=== PATIENT | female | born 1950 | race Caucasian/White ===

== ENCOUNTER → 2022-02-24 | Outpatient (CLI) | payer MEDICARE, SELFPAY ==
[2022-02-24 17:54] LABS: Hematocrit 43.7 % (37-47); Hemoglobin 13.9 g/dL (12.0-15.0); Mean Corp Hgb Conc 31.8 g/dL (32-36); Mean Corpuscular Volume 94.4 fL (81-99); Mean Platelet Vol. 11.4 fl (6.2-12.0); Platelet Count 242 K/mm3 (150-450); RBC Distribution Width CV 13.6 % (11.6-14.6); RBC Distribution Width SD 47.2 fl (35.1-43.9); Red Blood Count 4.63 M/mm3 (4.2-5.4); White Blood Count 5.8 K/mm3 (4.4-11.0)
[2022-02-24 18:05] LABS: CRP < 2.90 mg/L (0.0-3.0)
[2022-02-27 09:08] LABS: Endomysial Antibody IgA Negative (Negative)
[2022-02-27 13:45] LABS: Immunoglobulin A 229 mg/dL (87-352); t-Transglutaminase IgA <2 U/mL (0-3)
== END | disposition home or self-care (01) ==
PROVIDERS: PCP Family Medicine; Referring Provider Internal Medicine Gastroenterology; Visit Provider Internal Medicine Gastroenterology
DX: R19.7 Diarrhea, unspecified (principal)
CPT/HCPCS: 36415; 82784; 83516; 85027; 86140; 86255

== ENCOUNTER → 2022-09-14 | Outpatient (CLI) | payer MEDICARE, SELFPAY ==
--- NOTE | 2022-09-14 11:22 | RAD_ITS ---
STUDY: X-RAY - LEFT HAND, ATTENTION FOURTH FINGER REASON FOR EXAM: Female, 71 years old. Ganglion cyst left ring finger. TECHNIQUE: 3 view(s) of the finger were obtained. COMPARISON: None. FINDINGS: Osteopenia. Mild arthrosis of the MCP and IP joints. Focal soft tissue swelling adjacent to the distal phalanx of the fourth digit. RAD/Finger(s) Min 2 Views IMPRESSION: Osteopenia, osteoarthritic changes and focal soft tissue swelling. No aggressive features or acute abnormality. Electronically Signed: Hadley Reinoso, at 15:01 EST ,
== END | disposition home or self-care (01) ==
LOC: RAD 11:14
PROVIDERS: PCP Family Medicine; Referring Provider Nurse Practitioner Family; Visit Provider Nurse Practitioner Family
DX: M67.442 Ganglion, left hand (principal)
CPT/HCPCS: 73140

== ENCOUNTER 2022-11-09 22:49 | Emergency (ER) | payer MEDICARE, SELFPAY ==
[2022-11-09] VITALS (7 sets, daily range): BP systolic 71–105; BP diastolic 44–49; PULSE 65–75; RESP 15–25; TEMP 36.6; O2SAT 94–97; BMI 34.0
[2022-11-09] MEDS: 0.9% Normal Saline 1,000 ML 1000 ML IV (23:09)
[2022-11-09 23:16] LABS: Absolute Neutrophil Count 4.8 X10^3/uL (2.0-7.7); Basophil# 0.06 X10^3/uL; Basophil% 0.8 % (0-1); Eosinophil# 0.12 X10^3/uL; Eosinophils% 1.7 % (0-5); Hemoglobin 9.5 g/dL (12.0-15.0); Lymphocyte % 22.4 % (19-41); Mean Corp Hgb Conc 31.7 g/dL (32-36); Mean Corpuscular Hgb 30.5 pg (27.0-32.0); Mean Corpuscular Volume 96.5 fL (81-99); Mean Platelet Vol. 11.2 fl (6.2-12.0); Monocyte# 0.53 X10^3/uL; Monocyte% 7.4 % (0-10); NRBC Flagged by Analyzer 0 % (0-5); Neutrophil # 4.81 X10^3/uL (2.7-7.7); Neutrophil % 67.4 % (47-70); Platelet Count 246 K/mm3 (150-450); RBC Distribution Width CV 13.6 % (11.6-14.6); RBC Distribution Width SD 48.3 fl (35.1-43.9); Red Blood Count 3.11 M/mm3 (4.2-5.4); White Blood Count 7.1 K/mm3 (4.4-11.0)
--- NOTE | 2022-11-09 23:31 | EX.ED.DYSGE1 ---
HPI History of Present Illness Chief Complaint: Syncope Detail of Chief Complaint: Nausea and vomiting. Informant: patient and spouse/S.O. Onset/Context/Timing Onset: Today and Yesterday Context: Gradual Onset Timing: Continuous Current Severity: Mild Maximum Severity: Moderate Narrative Narrative: 71-year-old female history of prior cholecystectomy and gastritis. States that she occasionally gets episodes where she gets significant epigastric pain with nausea and vomiting. She has had a upper GI to diagnose gastritis. She denies any hematemesis or melena. Said this began last night. She has had significant nausea and vomiting. She says is pretty common for these episodes. Prior similar symptoms: Yes Recent Illness/Hospitalization: No PFSH PFS Medical History Acquired deformity of nail ADHD Anemia Chronic bronchitis Concussion Family history of breast cancer Gallstones Gastritis Gastrointestinal problem Heart murmur High blood pressure History of echocardiogram History of IBS History of irregular heartbeat IBS (irritable bowel syndrome) Kidney stones Low iron Mitral valve prolapse Non-smoker Pneumonia Vision problems Wears glasses Home Medications bupropion HCl 300 mg 24 hr tablet, extended release 300 mg PO QAM 09/14/22 [History Last Taken Unknown] cholecalciferol (vitamin D3) 10 mcg (400 unit) tablet 10 mcg PO .3 X Week 09/14/22 [History Last Taken Unknown] ferrous sulfate 325 mg (65 mg iron) tablet (Feosol) 325 mg PO .3 X a week 09/14/22 [History Last Taken Unknown] losartan 25 mg tablet 25 mg PO DAILY 09/14/22 [History Last Taken Unknown] methylphenidate HCl 20 mg tablet 20 mg PO BID 09/14/22 [History Last Taken Unknown] multivitamin (Daily Multi-Vitamin tablet) 1 tab PO DAILY 09/14/22 [History Last Taken Unknown] Allergy/AdvReac Type Severity Reaction Status Date / Time latex Allergy Mild Rash Verified 11/09/22 22:52 clindamycin [From Cleocin] AdvReac Rash Verified 11/09/22 22:52 Family History Mother Arthritis Breast cancer Grandfather Cancer Grandmother Diabetes Father CVA (cerebral vascular accident) Other Parkinson disease Surgical History History of cholecystectomy History of colonoscopy History of tonsillectomy [place] teeth extracted Social History Smoking Status: Never smoker alcohol intake: never substance use type: does not use ROS ROS ED ROS Narrative Epigastric abdominal pain. Nausea and vomiting. No fever. No melena or hematemesis. Review of Systems ROS Unobtainable: Denies due to encephalopathy Constitutional Constitutional ED: Reports chills; Denies fever(s) Eyes Eyes: Denies blurry vision ENT ENT ED: Denies ear pain Cardiovascular Cardiovascular: Denies chest pain Respiratory/Chest Respiratory/Chest: Denies cough Gastrointestinal Gastrointestinal: Reports abdominal pain, nausea and vomiting; Denies constipation, diarrhea or melena Genitourinary Genitourinary ED: Denies dysuria or hematuria Musculoskeletal Musculoskeletal: Denies arthralgias Integumentary Denies abscess Neurologic Neurologic: Denies headache(s) Psychiatric Psychiatric: Denies anxiety Endocrine Endocrinology: Denies cold intolerance Hematologic/Lymphatic Hematologic/Lymphatic: Reports none Allergic/Immunologic Allergic/Immunologic ED: Denies mouth swelling or tongue swelling EXAM Physical Exam Narrative Exam Narrative: 71-year-old female complaining epigastric abdominal pain. Initial blood pressure 75/47. Heart rate 65. She is afebrile. Pulse ox 97% on room air no hypoxia. at bedside. H EENT exam mildly dry mucous membranes. Otherwise unremarkable. Neck nontender. Lungs are clear. Heart regular rhythm rate about 65 no murmur. Abdomen is soft. She is complaining of pain but does not reproducibly tender. There is no right upper quadrant or right lower quadrant tenderness. No peritoneal signs. No distention or signs of obstruction. Moving all 4 extremities. Nontender no edema. Back nontender. Neurologically she is awake and alert. Const Vital Signs: 11/09/22 22:53 11/09/22 22:59 11/09/22 23:00 Temperature 97.9 F Temperature Source Oral Pulse Rate 65 65 Respiratory Rate 25 H 25 H Respiratory Effort Normal Respiratory Pattern Normal Blood Pressure 75/47 L 71/46 L Blood Pressure Mean 56 54 Blood Pressure Source Blood Pressure Position Blood Pressure Location Pulse Ox 97 96 Oxygen Delivery Method Room Air Room Air 11/09/22 23:35 11/09/22 23:18 11/09/22 23:28 Temperature Temperature Source Pulse Rate 73 68 70 Respiratory Rate 15 15 18 Respiratory Effort Respiratory Pattern Blood Pressure 103/44 L 105/49 L Blood Pressure Mean 63 66 Blood Pressure Source Blood Pressure Position Blood Pressure Location Pulse Ox 94 Oxygen Delivery Method Room Air 11/09/22 23:31 11/09/22 23:46 11/10/22 00:17 Temperature Temperature Source Pulse Rate 68 75 Respiratory Rate 15 16 Respiratory Effort Respiratory Pattern Blood Pressure 103/44 L 102/49 L 100/53 L Blood Pressure Mean 62 65 69 Blood Pressure Source Blood Pressure Position Blood Pressure Location Pulse Ox Oxygen Delivery Method 11/10/22 00:31 11/10/22 00:40 11/10/22 00:46 Temperature Temperature Source Pulse Rate 89 78 Respiratory Rate Respiratory Effort Respiratory Pattern Blood Pressure 127/60 H 140/70 H Blood Pressure Mean 75 90 Blood Pressure Source Blood Pressure Position Blood Pressure Location Pulse Ox Oxygen Delivery Method 11/10/22 01:01 11/10/22 01:31 11/10/22 01:35 Temperature 98.4 F 98.2 F Temperature Source Oral Oral Pulse Rate 84 84 78 Respiratory Rate 18 38 H 19 H Respiratory Effort Respiratory Pattern Blood Pressure 128/75 H 128/69 H 132/74 H Blood Pressure Mean 92 88 93 Blood Pressure Source Monitor Monitor Blood Pressure Position Semi-Fowlers Semi-Fowlers Blood Pressure Location Right Arm Right Arm Pulse Ox 96 96 98 Oxygen Delivery Method Room Air Room Air 11/10/22 01:50 11/10/22 02:50 Temperature 98.3 F 98 F Temperature Source Oral Oral Pulse Rate 82 95 Respiratory Rate 18 18 Respiratory Effort Respiratory Pattern Blood Pressure 138/76 H 141/96 H Blood Pressure Mean 96 111 Blood Pressure Source Monitor Monitor Blood Pressure Position Semi-Fowlers Semi-Fowlers Blood Pressure Location Right Arm Right Arm Pulse Ox 98 97 Oxygen Delivery Method Room Air Room Air Positive well nourished and well developed; Negative for cachectic, contractures or unkempt General Appearance ED: well developed; Negative for unkempt, cachectic, contractures, cyanotic, diaphoretic, NAD or pallor Nutritional Appearance: Negative for cachectic HEENT Reports dry mucous membranes; Denies moist mucous membranes Negative for trauma or tenderness Mouth ED: Yes dry mucous membranes Mouth: dry mucous membranes Eyes PERRL and EOMs intact bilaterally General Eye ED: Negative for pale conjunctiva or scleral icterus Neck no lymphadenopathy, supple and no JVD General: Negative for tenderness Lymph Lymphatic: Negative for other Chest Wall inspection of chest normal and palpation of chest normal Chest: Negative for other Resp clear to auscultation bilaterally Effort and Inspection: Negative for retractions Auscultation: Negative for rales, rhonchi or wheezes Cardio regular rate, regular rhythm, S1 normal heart sound, S2 normal heart sound and no murmurs Palpation: Negative for palpable S3 Rate: Negative for bradycardia Rhythm: Negative for abnormal rhythm GI normal to inspection, nondistended, normoactive bowel sounds, non-tender, non-distended and no masses Inspection: Negative for abdominal distention Auscultation: normoactive bowel sounds Palpation: soft; Negative for tender, guarding, splenomegaly, mass or rebound tenderness present Back/Spine no CVA tenderness General Back: Negative for CVA tenderness Cervical Spine: Negative for cervical spine tenderness Thoracic Spine / Upper Back: Negative for thoracic spinal tenderness Lumbar Spine / Lower Back: Negative for lumbar spinal tenderness Extremity normal to inspection General Extremety ED: Negative for edema, tenderness or other findings General Extremity: Negative for edema or other findings Neuro oriented x3 Sensorium / Orientation: alert; Negative for orientation impaired Sensory Exam: No sensory level loss detected Motor Exam: strength 5/5 throughout; Negative for general weakness Psych mental status grossly normal Appearance: Negative for unkempt Attitude: No agitated Mood & Affect: Negative for depressed, anxious or tearful Skin no rashes or lesions noted, no wounds and skin turgor normal General Skin Exam: Negative for elasticity normal, jaundice or pallor Lesions: No lesion noted Rashes: No rashes noted Trauma: Negative for abrasion Wounds: Negative for wounds noted MDM MDM MDM Narrative Medical decision making narrative: [id number] female with epigastric abdominal pain with a history of gastritis. Has nausea and vomiting. She will be treated with IV fluids for her hypotension of 75/47. She will be given Zofran for nausea. Fentanyl for pain. She also be given IV Protonix. I am concerned because her initial labs her hemoglobin is 9.5 and previously was 13.9 she is she is down 4+ units. She will also be typed and crossed. She will not be given blood at this time. But may needed if her pressure does not improve with IV fluid boluses. Patient's abdominal CAT scan per the radiologist was concerning for gastric volvulus which was basically inside her chest cavity. We gave her oral contrast shot to Long and is been no movement of the contrast into her intestines. Which would be also consistent with a gastric volvulus. I spoke to my general surgeon on-call since most of the pathology is in the patient's chest this will take most likely cardiothoracic surgery involvement and she felt it be best to be referred to an outside facility where they have those type of capabilities. We will try multiple hospitals for an accepting facility. Currently the patient is stable and doing well at 1:30 AM. Her abdomen is nontender and nondistended. She is current blood pressure is 132/74. She feels much improved. I spoke to the general surgeon on-call at [facility]. They will accept the patient in transfer. She requested we try to place an NG. Patient was transfused a unit of blood. Was placed and she had coffee ground material through the NG. History & Record Review Discussion w/independent historian: Patient and Family Lab Data Attestation: I reviewed the patient's lab results. Lab results narrative: CBC White count 7.1 H&H 9.5 and 30. Previously her hemoglobin was 13.9. Platelets of 246. Electrolytes show sodium 140. Gap is 6 BUN is 51 creatinine is 1.13 which could be from dehydration could also be from an upper GI bleed. Glucose 172. Liver enzymes unremarkable. Lipase is only 56. Patient has been typed and crossed for blood but has not needed any blood and responded well to IV fluid bolus. Labs: Laboratory Results - last 24 hr 11/09/22 11/09/22 11/09/22 23:09 23:09 23:36 WBC 7.1 RBC 3.11 L Hgb 9.5 L Hct 30.0 L MCV 96.5 MCH 30.5 MCHC 31.7 L RDW Std Deviation 48.3 H RDW Coeff of Tyrel 13.6 Plt Count 246 MPV 11.2 Immature Gran % (Auto) 0.300 Neut % (Auto) 67.4 Lymph % (Auto) 22.4 Young % (Auto) 7.4 Eos % (Auto) 1.7 Baso % (Auto) 0.8 Absolute Neuts (auto) 4.8 Absolute Lymphs (auto) 1.60 Nucleated RBC % 0 PT 16.1 H INR 1.3 APTT 30.0 Sodium 140 Potassium 4.6 Chloride 112 H Carbon Dioxide 22.0 Anion Gap 6 BUN 51 H Creatinine 1.13 H Estim Creat Clear Calc 40.57 Est GFR (MDRD) Af Amer 61 Est GFR (MDRD) Non-Af 51 L BUN/Creatinine Ratio 45.1 H Glucose 172 H Calcium 8.2 L Total Bilirubin 0.40 AST 16 ALT 21 Alkaline Phosphatase 54 Total Protein 5.4 L Albumin 2.4 L Globulin 3.0 Albumin/Globulin Ratio 0.8 L Lipase 56 L Blood Type Antibody Screen Crossmatch 11/09/22 23:36 WBC RBC Hgb Hct MCV MCH MCHC RDW Std Deviation RDW Coeff of Tyrel Plt Count MPV Immature Gran % (Auto) Neut % (Auto) Lymph % (Auto) Young % (Auto) Eos % (Auto) Baso % (Auto) Absolute Neuts (auto) Absolute Lymphs (auto) Nucleated RBC % PT INR APTT Sodium Potassium Chloride Carbon Dioxide Anion Gap BUN Creatinine Estim Creat Clear Calc Est GFR (MDRD) Af Amer Est GFR (MDRD) Non-Af BUN/Creatinine Ratio Glucose Calcium Total Bilirubin AST ALT Alkaline Phosphatase Total Protein Albumin Globulin Albumin/Globulin Ratio Lipase Blood Type O NEGATIVE Antibody Screen NEGATIVE Crossmatch See Detail Radiography Diagnostic Testing: Clinical Impression(s) from Imaging Studies Abdomen/Pelvis CT 11/10/22 00:00 IMPRESSION: There is a large hiatal hernia with mesenteric axial gastric volvulus. Nonobstructing stones in the right and left kidneys the largest measures 6 mm. Electronically Signed: Renuka Conley MD at 0:33 EDT , ADDENDUM: 11/10/22 0045 IMPRESSION: There is a large hiatal hernia with mesenteric axial gastric volvulus. Nonobstructing stones in the right and left kidneys the largest measures 6 mm. N.B. : The above Results were Read Back by Renuka Conley MD to Sandro Ruano MD, and understanding confirmed on 11/10/2022 00:38:23 (ET). Electronically Signed: Renuka Conley MD at 0:33 EDT , KUB X-Ray 11/10/22 00:42 IMPRESSION: Gastric obstruction due to gastric volvulus. Electronically Signed: Renuka Conley MD at 1:42 EDT Reading Location ID and State: [facility] / [place] Tel , Service support , KUB X-Ray 11/10/22 01:12 IMPRESSION: Persisting gastric obstruction . Electronically Signed: Renuka Conley MD at 1:54 EDT Reading Location ID and State: [facility] / [place] Tel , Service support , KUB was not done after the CAT scan due to concern for gastric obstruction. Contrast was given. A film was done 15 minutes later and and about 30 minutes later and there was no movement of the contrast outside the stomach again concerning for gastric volvulus or at least an outlet obstruction. Interpreted both by myself and the radiologist. Rhythm Strip Rhythm Strip: Sinus Rhythm Rate: 65 Ectopy: None EKG Initial EKG: Attestation: I personally reviewed and interpreted this EKG as follows: Interpretation: Sinus Rhythm and No Acute Injury Pattern Comments: Sinus rhythm rate of 65 no acute signs of CA or ischemia. Critical Care Time Critical Care Time: Yes Critical care time (excluding procedures): 30-74 minutes, Including time spent:, Discussing w/Patient &/or Family/Seat Nailer, Discussing w/Consultants, Arranging Admission or Transfer, Performing Direct Patient Care at Bedside and - (34 min) Discharge Plan Triage Chief Complaint: Syncope ED Provider: Brent Ruano Dx/Rx/DC Orders Clinical Impression: Acute gastric volvulus, Anemia, Acute upper GI bleed, Hx of cholecystectomy, Transient hypotension, Acute dehydration Prescriptions: No Action methylphenidate HCl 20 mg tablet 20 mg PO BID bupropion HCl 300 mg tablet extended release 24 hr 300 mg PO QAM losartan 25 mg tablet 25 mg PO DAILY ferrous sulfate [Feosol] 325 mg (65 mg iron) tablet 325 mg PO .3 X a week cholecalciferol (vitamin D3) 10 mcg (400 unit) tablet 10 mcg PO .3 X Week multivitamin [Daily Multi-Vitamin] Tablet 1 tab PO DAILY Primary Care Provider: Karli Bennett Referrals: Karli Bennett MD [Primary Care Provider] - Disposition Disposition: Acute Care Hospital
[2022-11-09 23:37] LABS: ALB/GLOB Ratio 0.8 RATIO (0.9-2.4); AST(SGOT) 16 U/L (15-37); Alanine Aminotransfer ALT/SGPT 21 U/L (13-56); Albumin, Serum 2.4 g/dL (3.2-5.0); Alkaline Phosphatase 54 U/L (45-117); Anion Gap 6 (5-15); BUN 51 mg/dL (7-18); BUN/Creat Ratio 45.1 RATIO (10-20); Calcium,Total 8.2 mg/dL (8.5-10.1); Chloride 112 mmol/L (98-107); Creatinine, Serum 1.13 mg/dL (0.55-1.02); EST Glomerular Filtration Rate 51 mL/min (>60); Est Glom Filt Rate - Afr Amer 61 mL/min (>60); Estimated Creatinine Clearance 40.57 ml/min; Glucose 172 mg/dL (74-106); Lipase 56 U/L (73-393); Potassium 4.6 mmol/L (3.5-5.1); Protein, Total 5.4 g/dL (6.4-8.2); Sodium Level 140 mmol/L (136-145)
[2022-11-10] VITALS (18 sets, daily range): BP systolic 100–171; BP diastolic 53–104; PULSE 73–118; RESP 14–38; TEMP 36.6–36.9; O2SAT 96–98
[2022-11-10] LABS: International Normalized Ratio 1.3; Prothrombin Time (Protime)PT. 16.1 SECONDS (11.7-14.9)
--- NOTE | 2022-11-10 | CT_ITS ---
We are attempting to reach an attending provider to discuss findings. An addendum with communication details will be sent when the communication is complete. INDICATION: epigastric abd pain. anemia new EXAMINATION: CT ABDOMEN AND PELVIS WITH CONTRAST - CT Abdomen And Pelvis W/ Contrast Injection TECHNIQUE: Helically acquired images were obtained of the abdomen and pelvis following IV contrast. A radiation dose optimization technique was used for this scan. IV Contrast dosage and agent: Oral contrast: None. Radiation Dose (If provided by facility): 17.05 1374.08 COMPARISON: None. FINDINGS: LOWER CHEST: Lung bases are clear. No cardiomegaly or pericardial effusion. LIVER: Homogeneous. No focal mass. No intra- or extrahepatic biliary ductal dilation. PANCREAS: No focal cystic or solid mass. SPLEEN: Normal size without focal cystic or solid mass. ADRENAL GLANDS: No nodules. KIDNEYS AND URETERS: Normal renal size and position. Nonobstructing stones in the right and left kidneys the largest measures 6 mm. No hydronephrosis. PERITONEUM: No ascites or free air. No other fluid collection. BOWEL: No evidence of acute appendicitis. No stomach or bowel distension. No focal inflammatory change. LYMPH NODES: No enlarged mesenteric or retroperitoneal lymph nodes. VESSELS: Aorta is non-dilated. URINARY BLADDER: Unremarkable. REPRODUCTIVE ORGANS: No pelvic masses. ABDOMINAL WALL: No discrete abdominal or pelvic wall hernia. BONES: No lytic or blastic abnormality. CT/Abdomen/Pelvis W IV Cont ONLY IMPRESSION: There is a large hiatal hernia with mesenteric axial gastric volvulus. Nonobstructing stones in the right and left kidneys the largest measures 6 mm. Electronically Signed: Renuka Conley MD at 0:33 EDT ,
[2022-11-10] MEDS: 0.9% Normal Saline 1,000 ML 999 ML IV (00:13)
--- NOTE | 2022-11-10 00:42 | RAD_ITS ---
INDICATION: 15 min post oral contrast EXAMINATION/TECHNIQUE: X-RAY - XR Abdomen 1 View FINDINGS: BOWEL GAS PATTERN: The stomach is intrathoracic. There is gastric distention with no contrast passing through the stomach consistent with obstruction most likely due to gastric volvulus . FREE AIR: Not assessed on a single supine view. ORGANOMEGALY: Not seen. CALCIFICATIONS: No abnormal calcifications observed. LOWER CHEST: No acute pathology. BONES AND SOFT TISSUES: No acute pathology. RAD/Abdomen Single View IMPRESSION: Gastric obstruction due to gastric volvulus. Electronically Signed: Renuka Conley MD at 1:42 EDT ,
--- NOTE | 2022-11-10 01:12 | RAD_ITS ---
INDICATION: volvulus EXAMINATION/TECHNIQUE: X-RAY - XR Abdomen 1 View COMPARISON: Comparison to the study performed 30 minutes earlier FINDINGS: BOWEL GAS PATTERN: The stomach is intrathoracic. There is gastric distention with no contrast passing through the stomach consistent with obstruction most likely due to gastric volvulus . FREE AIR: Not assessed on a single supine view. ORGANOMEGALY: Not seen. CALCIFICATIONS: No abnormal calcifications observed. LOWER CHEST: No acute pathology. BONES AND SOFT TISSUES: Contrast residue in the bilateral renal collecting systems. RAD/Abdomen Single View IMPRESSION: Persisting gastric obstruction . Electronically Signed: Renuka Conley MD at 1:54 EDT ,
--- NOTE | 2022-11-10 01:41 | ED.RN ---
[facility] called for transfer at this time
--- NOTE | 2022-11-10 02:18 | RAD_ITS ---
INDICATION: NG Insertion EXAMINATION/TECHNIQUE: X-RAY - XR Abdomen 1 View COMPARISON: FINDINGS: BOWEL GAS PATTERN: Persisting gastric obstruction. NG tube in the lower esophagus does not reach the gastric lumen. FREE AIR: Not assessed on a single supine view. ORGANOMEGALY: Not seen. CALCIFICATIONS: No abnormal calcifications observed. LOWER CHEST: No acute pathology. BONES AND SOFT TISSUES: No acute pathology. RAD/Abdomen Single View (Portable) IMPRESSION: Persisting gastric obstruction. NG tube in the lower esophagus does not reach the gastric lumen. Electronically Signed: Renuka Conley MD at 4:17 EDT ,
[2022-11-10] MEDS: Ondansetron 4 MG/2 ML Vial IV (02:47)
--- NOTE | 2022-11-10 03:11 | ED.RN ---
Pt not tolerating NG tube when trying to advance. Pt grabbing at RN and tube. Dr. Ruano notified, verbal order to d/c NG.
--- NOTE | 2022-11-10 03:45 | ED.RN ---
Report given to Favio GUPTA at [facility].
== END 2022-11-10 05:08 | disposition short-term general hospital (02) ==
PROVIDERS: Emergency Medicine; Emergency Provider Emergency Medicine; PCP Family Medicine; Visit Provider Emergency Medicine
DX: K31.89 Other diseases of stomach and duodenum (principal); K92.2 Gastrointestinal hemorrhage, unspecified; D64.9 Anemia, unspecified; R55 Syncope and collapse; E86.0 Dehydration; Z90.49 Acquired absence of other specified parts of digestive tract; I95.89 Other hypotension
CPT/HCPCS: 36430; 74018; 74177; 80053; 83690; 85025; 85610; 85730; 86850; 86900; 86901; 86920; 86922; 93005; 96361; 96374; 99285; J7030; J7040; P9016; Q9967; A4216; J2405; J3490

== ENCOUNTER 2023-11-18 07:42 | Inpatient (IN) | payer MEDICARE, SELFPAY ==
[2023-11-18] VITALS (8 sets, daily range): BP systolic 120–154; BP diastolic 73–99; PULSE 70–82; RESP 14–18; TEMP 36.1–36.4; O2SAT 96–100; BMI 29.5
--- NOTE | 2023-11-18 07:59 | CT_ITS ---
STUDY: CT ABDOMEN AND PELVIS WITH CONTRAST REASON FOR EXAM: Female, 73 years old. s/p hiatal hernia repair constipation RADIATION DOSAGE (If Supplied By Facility): CTDIvol = ( 13.79 ) mGy, DLP = ( 916.09 ) mGycm TECHNIQUE: Transaxial images were obtained from the dome of the diaphragm to the symphysis pubis without oral contrast. 100 CC ISOVUE 300 was administered. Sagittal and coronal images were reconstructed. Individualized dose optimization techniques were used for this CT. COMPARISON: None. FINDINGS: The visualized lung bases are unremarkable. The visualized portions of the heart are within normal limits. There is decreased attenuation of the liver consistent with steatosis. Stable 8 mm cyst in the medial aspect of the right lobe of the liver at the level of the falciform ligament. There are surgical clips in the gallbladder fossa consistent with a prior cholecystectomy. Normal spleen. Normal pancreas. Normal bilateral adrenal glands. There are 2 adjacent nonobstructive calculi in the lower pole calyx of the right kidney. The largest measures 6 mm. Nonobstructing calculus in the mid upper pole of the left kidney. There is evidence of circumferential thickening at the gastroesophageal junction most likely secondary to the recent hiatal hernia repair. Normal small intestine. A moderate amount of fecal material is seen in the colon. The appendix is visualized and appears normal. Normal abdominal aorta. Normal inferior vena cava. Normal retroperitoneum. Normal urinary bladder. There is a 2.6 cm x 2.5 cm cyst in the left ovary. This is unchanged. There is a right-sided inguinal hernia containing adipose tissue. Grade 2 anterior listhesis of L5 on S1 with spondylolysis of the pars interarticularis of the L5 vertebrae. CT/Abdomen/Pelvis W IV Cont ONLY IMPRESSION: Status post bilateral hernia repair. Fatty infiltration of the liver. Status post cholecystectomy. Stable nonobstructive bilateral intrarenal calculi. Stable left ovarian cyst. Electronically Signed: Andrea Duran MD at 9:05 EDT ,
--- NOTE | 2023-11-18 08:15 | EX.ED.DYSGE1 ---
HPI History of Present Illness Chief Complaint: Constipation Informant: patient and spouse/S.O. Narrative Narrative: 73-year-old female presenting to the emergency room with constipation times about 1 month. Patient underwent hiatal hernia surgery at [facility]. States she was in the hospital for about 5 days and was discharged home. When she returned home she found out her brother and shortly thereafter a close friend . She states that she had taken 1 Colace when she relates she was being constipated. She still having flatus. She has had small amounts of stool but still feels very bloated. She was told she could advance her diet on November 07 but due to nausea and worry she has not really advanced her diet much out of the liquid/soft phase. She has been taking Zofran for nausea. No reported fevers. No urinary symptoms. Other than feeling bloated and thick she has not had abdominal pain. She notes her incisions have been healing well. [facility] Medical History Acquired deformity of nail ADHD Anemia Chronic bronchitis Concussion Family history of breast cancer Gallstones Gastritis Gastrointestinal problem Heart murmur High blood pressure History of echocardiogram History of IBS History of irregular heartbeat IBS (irritable bowel syndrome) Kidney stones Low iron Mitral valve prolapse Non-smoker Pneumonia Vision problems Wears glasses Home Medications bupropion HCl 300 mg 24 hr tablet, extended release 300 mg PO QAM 09/14/22 [History Last Taken Unknown] cholecalciferol (vitamin D3) 10 mcg (400 unit) tablet 10 mcg PO .3 X Week 09/14/22 [History Last Taken Unknown] ferrous sulfate 325 mg (65 mg iron) tablet (Feosol) 325 mg PO .3 X a week 09/14/22 [History Last Taken Unknown] losartan 25 mg tablet 25 mg PO DAILY 09/14/22 [History Last Taken Unknown] multivitamin (Daily Multi-Vitamin tablet) 1 tab PO DAILY 09/14/22 [History Last Taken Unknown] methylphenidate HCl 20 mg tablet,extended release 20 mg PO BID 11/18/23 [History Last Taken Unknown] omeprazole 40 mg capsule,delayed release 40 mg PO DAILY 11/18/23 [History Last Taken Unknown] ondansetron HCl 4 mg tablet 4 mg PO PRN nausea 11/18/23 [History Last Taken Unknown] Allergy/AdvReac Type Severity Reaction Status Date / Time latex Allergy Mild Rash Verified 11/18/23 07:43 clindamycin [From Cleocin] AdvReac Rash Verified 11/18/23 07:43 Family History Mother Arthritis Breast cancer Grandfather Cancer Grandmother Diabetes Father CVA (cerebral vascular accident) Other Parkinson disease Surgical History History of cholecystectomy History of colonoscopy History of hernia repair History of tonsillectomy [place] teeth extracted Social History Smoking Status: Never smoker alcohol intake: never substance use type: does not use ROS ROS ED Constitutional Constitutional ED: Denies chills, fever(s) or weight loss Eyes Eyes: Denies change in vision or diplopia ENT ENT ED: Denies ear pain, rhinorrhea or sore throat Cardiovascular Cardiovascular: Denies chest pain, orthopnea, palpitations or racing heartbeat Respiratory/Chest Respiratory/Chest: Denies cough, dyspnea or orthopnea Gastrointestinal Gastrointestinal: Reports constipation and nausea; Denies abdominal pain, diarrhea or vomiting Genitourinary Genitourinary ED: Denies dysuria, hematuria or urinary frequency Musculoskeletal Musculoskeletal: Denies arthralgias or myalgias Integumentary Denies abscess or rash Neurologic Neurologic: Denies headache(s) or weakness Psychiatric Psychiatric: Denies anxiety, depression, suicidal ideation or suicidal thoughts Endocrine Endocrinology: Denies polydipsia, polyphagia or polyuria Allergic/Immunologic Allergic/Immunologic ED: Denies mouth swelling, tongue swelling or urticaria EXAM Physical Exam Const Vital Signs: 11/18/23 07:42 11/18/23 09:42 Temperature 97 F L Temperature Source Temporal Pulse Rate 80 82 Respiratory Rate 14 14 Blood Pressure 130/99 H 127/84 H Blood Pressure Mean 109 98 Pulse Ox 100 100 Oxygen Delivery Method Room Air Room Air Positive well nourished and well developed General Appearance ED: well developed HEENT Reports normocephalic, head/scalp atraumatic and moist mucous membranes Eyes PERRL and EOMs intact bilaterally Neck no lymphadenopathy, supple and no JVD Resp normal respiratory effort and clear to auscultation bilaterally Cardio regular rate, regular rhythm and no murmurs GI normal to inspection, nondistended, normoactive bowel sounds and non-tender GI Narrative: There are well-healing surgical incisions on the abdomen. No concern for secondary infection. The abdomen is soft. There are normal bowel sounds. Inspection: Negative for abdominal distention Auscultation: normoactive bowel sounds Palpation: soft; Negative for tender, guarding or rebound tenderness present Back/Spine no CVA tenderness and normal ROM Extremity normal to inspection General Extremety ED: Negative for edema General Extremity: Negative for edema Neuro oriented x3 and CN's II-XII intact bilaterally Sensorium / Orientation: alert Motor Exam: strength 5/5 throughout Psych mental status grossly normal Mood & Affect: Negative for depressed or tearful Skin no rashes or lesions noted and no wounds MDM MDM MDM Narrative Medical decision making narrative: Differential diagnosis includes but not limited to dehydration constipation ileus small bowel obstruction surgical complications. White count 5.7 with a hemoglobin 11.1 with a count of 256 creatinine now 3.68 with a BUN of 35. Glucose of 126 LFTs are normal urinalysis 25-50 white cells 1+ bacteria. This was sent for culture. Patient does not have any urinary symptoms. Urine creatinine 38.7 with a random sodium of 31. CT of the pelvis was obtained. This demonstrates increased stool consistent with her history of constipation but no obstruction ileus or inflammatory changes. Janina at 2.2% suggestive of intrinsic renal disease. I was able to obtain using clinda sink that her last creatinine 1.21 on 20 October 2023. History & Record Review Discussion w/independent historian: Patient and Significant other Lab Data Attestation: I reviewed the patient's lab results. Labs: Laboratory Results - last 24 hr 11/18/23 11/18/23 08:15 09:45 WBC 5.7 RBC 3.99 L Hgb 11.1 L Hct 35.1 L MCV 88.0 MCH 27.8 MCHC 31.6 L RDW Std Deviation 51.4 H RDW Coeff of Tyrel 15.8 H Plt Count 256 MPV 11.0 Immature Gran % (Auto) 0.400 Neut % (Auto) 72.3 H Lymph % (Auto) 14.0 L [place] % (Auto) 8.2 Eos % (Auto) 4.2 Baso % (Auto) 0.9 Absolute Neuts (auto) 4.1 Absolute Lymphs (auto) 0.80 L Nucleated RBC % 0 Sodium 137 Potassium 3.7 Chloride 110 H Carbon Dioxide 21.0 Anion Gap 6 BUN 35 H Creatinine 3.68 H Estim Creat Clear Calc 14.29 Est GFR (MDRD) Af Amer 16 L Est GFR (MDRD) Non-Af 13 L BUN/Creatinine Ratio 9.5 L Glucose 126 H Calcium 9.8 Total Bilirubin 0.50 AST 11 L ALT 17 Alkaline Phosphatase 86 Total Protein 8.4 H Albumin 3.3 Globulin 5.1 H Albumin/Globulin Ratio 0.6 L Urine Color Yellow Urine Clarity Sl. Cloudy Urine pH 6.5 Ur Specific [place] 1.005 Urine Protein 15 H Urine Glucose (UA) Normal Urine Ketones Negative Urine Occult Blood 10 H Urine Nitrite Negative Urine Bilirubin Negative Urine Urobilinogen Normal Ur Leukocyte Esterase 500 H Urine RBC 0-5 SEEN Urine WBC 25-50 SEEN Ur Squamous Epith Cells 0-5 SEEN Urine Bacteria 1+ Urine Mucus 0 SEEN Ur Random Sodium 31 Urine Creatinine 38.70 Radiography Diagnostic Testing: Clinical Impression(s) from Imaging Studies Abdomen/Pelvis CT 11/18/23 07:59 IMPRESSION: Status post bilateral hernia repair. Fatty infiltration of the liver. Status post cholecystectomy. Stable nonobstructive bilateral intrarenal calculi. Stable left ovarian cyst. Electronically Signed: Andrea Duran MD at 9:05 EDT , Discharge Plan Triage Chief Complaint: Constipation ED Provider: Bret Reyes Dx/Rx/DC Orders Prescriptions: No Action bupropion HCl 300 mg tablet extended release 24 hr 300 mg PO QAM losartan 25 mg tablet 25 mg PO DAILY ferrous sulfate [Feosol] 325 mg (65 mg iron) tablet 325 mg PO .3 X a week cholecalciferol (vitamin D3) 10 mcg (400 unit) tablet 10 mcg PO .3 X Week multivitamin [Daily Multi-Vitamin] Tablet 1 tab PO DAILY ondansetron HCl 4 mg tablet 4 mg PO PRN omeprazole 40 mg capsule,delayed release(DR/EC) 40 mg PO DAILY methylphenidate HCl 20 mg tablet extended release 20 mg PO BID Primary Care Provider: Karli Bennett Referrals: Karli Bennett MD [Primary Care Provider] -
[2023-11-18 08:29] LABS: Absolute Neutrophil Count 4.1 X10^3/uL (2.0-7.7); Basophil# 0.05 X10^3/uL; Basophil% 0.9 % (0-1); Eosinophil# 0.24 X10^3/uL; Eosinophils% 4.2 % (0-5); Hematocrit 35.1 % (37-47); Hemoglobin 11.1 g/dL (12.0-15.0); Mean Corp Hgb Conc 31.6 g/dL (32-36); Mean Corpuscular Hgb 27.8 pg (27.0-32.0); Monocyte# 0.47 X10^3/uL; Monocyte% 8.2 % (0-10); NRBC Flagged by Analyzer 0 % (0-5); Neutrophil # 4.12 X10^3/uL (2.7-7.7); Neutrophil % 72.3 % (47-70); Platelet Count 256 K/mm3 (150-450); RBC Distribution Width CV 15.8 % (11.6-14.6); RBC Distribution Width SD 51.4 fl (35.1-43.9); Red Blood Count 3.99 M/mm3 (4.2-5.4); White Blood Count 5.7 K/mm3 (4.4-11.0)
[2023-11-18 08:44] LABS: ALB/GLOB Ratio 0.6 RATIO (0.9-2.4); AST(SGOT) 11 U/L (15-37); Alanine Aminotransfer ALT/SGPT 17 U/L (13-56); Albumin, Serum 3.3 g/dL (3.2-5.0); Alkaline Phosphatase 86 U/L (45-117); Anion Gap 6 (5-15); BUN 35 mg/dL (7-18); BUN/Creat Ratio 9.5 RATIO (10-20); Calcium,Total 9.8 mg/dL (8.5-10.1); Chloride 110 mmol/L (98-107); Creatinine, Serum 3.68 mg/dL (0.55-1.02); EST Glomerular Filtration Rate 13 mL/min (>60); Est Glom Filt Rate - Afr Amer 16 mL/min (>60); Estimated Creatinine Clearance 14.29 ml/min; Globulin 5.1 g/dL (2.2-4.2); Glucose 126 mg/dL (74-106); Potassium 3.7 mmol/L (3.5-5.1); Protein, Total 8.4 g/dL (6.4-8.2); Sodium Level 137 mmol/L (136-145)
[2023-11-18] MEDS: 0.9% Normal Saline (1000mL) 1,000 ML 999 ML IV (09:00)
[2023-11-18 10:36] LABS: Urine Sodium 31 mmol/L (Not Establ.)
[2023-11-18 10:53] LABS: Mucous, Urine 0 SEEN /hpf (<or=2+)
[2023-11-18 11:02] LABS: Color, Urine Yellow (Yellow); Glucose, Dipstick Normal (Normal); Ketone-Dipstick Negative (Negative); Leukocyte Esterase-Dipstick 500 /ul (Negative); Nitrite-Dipstick Negative (Negative); Occult Blood-Urine 10 /ul (Negative); Protein-Dipstick 15 mg/dl (Negative); Specific Gravity, Urine 1.005 (1.002-1.030); Urine Bilirubin Dipstick Negative (Negative); Urine Clarity Sl. Cloudy (Clear); Urine Urobilinogen Normal (Normal); Urine pH 6.5 (5.0 - 8.0)
[2023-11-18 11:12] LABS: Bacteria 1+ /hpf (None Seen); Red Blood Cells-Urine 0-5 SEEN /hpf (0-5); Squamous Epithelial Cells - UA 0-5 SEEN /hpf (5-10); White Blood Cells 25-50 SEEN /hpf (0-5)
--- NOTE | 2023-11-18 12:43 | US_ITS ---
STUDY: RENAL ULTRASOUND - COMPLETE REASON FOR EXAM: Female, 73 years old. Acute kidney injury. TECHNIQUE: Ultrasound evaluation of the kidneys was performed with real-time and static riley-scale imaging. COMPARISON: Comparison is made with prior CT scan abdomen pelvis done earlier today. FINDINGS: RIGHT KIDNEY: Normal location of the right kidney, which is normal in size. The right kidney measures 9.1 cm x 5.2 cm x 6.6 cm. There is a normal cortex of the right kidney. The renal cortex measures 1.3 cm. There is no right renal mass or cyst. There is a 9 mm x 9 mm a 6 mm nonobstructive intrarenal calculus. A smaller calculus is seen as well. There is no right hydronephrosis. DISTAL RIGHT URETER: There is non-visualization of the distal right ureter. There is no demonstrated right ureterovesical junction calculus. There is no demonstrated right ureteral jet. LEFT KIDNEY: Normal location of the left kidney, which is normal in size. The left kidney measures 10.5 cm x 5.1 cm x 4.2 cm. There is a normal cortex of the left kidney. The renal cortex measures 1.3 cm. There is no left renal mass or cyst. There is a 9 mm x 4 mm x 5 mm nonobstructive calculus in the midpole. There is no left hydronephrosis. DISTAL LEFT URETER: There is non-visualization of the distal left ureter. There is no demonstrated left ureterovesical junction calculus. There is no demonstrated left ureteral jet. BLADDER: A Zhang catheter is seen within the empty urinary bladder. US/Kidney and Bladder IMPRESSION: Bilateral nonobstructive intrarenal calculi. No evidence of hydronephrosis. Electronically Signed: Andrea Duran MD at 15:09 EDT ,
--- NOTE | 2023-11-18 12:44 | PCM.HP.STD ---
HPI - General General Date of Admission: 11/18/23 Chief Complaint: Constipation HPI Narrative REILLY ZHOU, is a 73 F who presented to the emergency department at [facility] on 11/18/2023 complaining of constipation. She reports that she had a Kaushik fundoplication done at [facility] [place] on October 21, 2023 and was discharged from [facility] [place] on October 25, 2023. She was discharged with as needed medication for constipation but had not been taking it consistently. She states that her brother unexpectedly shortly after she was discharged and then shortly after that a close friend had so she had not been thinking about herself. She did report she was having flatus but she was having intermittent nausea and vomiting at home as well. She has had very small amounts of stool output but indicated she felt very bloated. She was told she could advance her diet on November 07 but due to nausea and was still predominantly taking in a liquid/soft diet. She had been taking intermittent Zofran for nausea. She denied any significant abdominal pain, fevers, chills, chest pain or shortness of breath. She states she would not of presented to emergency department if she is not having any abdominal symptoms. Vital signs on presentation showed a temperature of 97, heart rate 80, blood pressure was 130/99, respiratory was 14 oxygen saturation was 100% on room air. Her CBC was unremarkable other than a mild anemia with a hemoglobin of 11.1 which is to be expected postoperatively. Her chemistry panel showed normal electrolytes however her BUN was 35 with a serum creatinine of 3.68. The ER physician was able to look up a recent serum creatinine from [facility] [place] and it appears her baseline creatinine was about 1.2 on October 20, 2023. He did calculate a FeNa which was 2.2% and is suggestive of intrinsic renal disease. The patient denied any new medications at home other than the antiemetic and the Colace for constipation which she had not been taking consistently. She states she is not been on antibiotics but I do suspect she had antibiotics while she was hospitalized in the perioperative period. CT of her abdomen pelvis showed status post bilateral hernia repair, fatty infiltration of liver, status postcholecystectomy with a stable nonobstructive bilateral intrarenal calculi and a stable left ovarian cyst she also had a moderate amount of stool in her colon. With her renal function being significantly elevated from her baseline request for admission was made. [facility] Medical History (Updated 11/18/23 @ 15:[address] Janet Bal DO) Acquired deformity of nail ADHD Anemia Chronic bronchitis Concussion Family history of breast cancer Gallstones Gastritis Gastrointestinal problem Heart murmur High blood pressure History of echocardiogram History of IBS History of irregular heartbeat IBS (irritable bowel syndrome) Kidney stones Low iron Mitral valve prolapse Non-smoker Pneumonia Vision problems Wears glasses Home Medications bupropion HCl 300 mg 24 hr tablet, extended release 300 mg PO QAM 09/14/22 [History Last Taken 11/18/23] cholecalciferol (vitamin D3) 10 mcg (400 unit) tablet 10 mcg PO .3 X Week 09/14/22 [History Last Taken Unknown] ferrous sulfate 325 mg (65 mg iron) tablet (Feosol) 325 mg PO .3 X a week 09/14/22 [History Last Taken 11/17/23] losartan 25 mg tablet 25 mg PO DAILY 09/14/22 [History Last Taken 11/17/23] multivitamin (Daily Multi-Vitamin tablet) 1 tab PO DAILY 09/14/22 [History Last Taken 11/17/23] methylphenidate HCl 20 mg tablet,extended release 20 mg PO DAILY 11/18/23 [History Last Taken 11/17/23] omeprazole 40 mg capsule,delayed release 40 mg PO DAILY 11/18/23 [History Last Taken 11/18/23] ondansetron HCl 4 mg tablet 4 mg PO PRN nausea 11/18/23 [History Last Taken Unknown] Allergy/AdvReac Type Severity Reaction Status Date / Time latex Allergy Mild Rash Verified 11/18/23 07:43 clindamycin [From Cleocin] AdvReac Rash Verified 11/18/23 07:43 Family History Mother Arthritis Breast cancer Grandfather Cancer Grandmother Diabetes Father CVA (cerebral vascular accident) Other Parkinson disease Surgical History (Updated 11/18/23 @ 15:[address] Janet Bal DO) History of cholecystectomy History of colonoscopy History of hernia repair History of Kaushik fundoplication History of tonsillectomy [place] teeth extracted Social History Smoking Status: Never smoker alcohol intake: never substance use type: does not use ROS Constitutional Constitutional: Denies anorexia, change in weight, chills, fatigue, fever(s), malaise, night sweats, weakness or other Eyes Eyes: Denies blurry vision, change in eye color, change in vision, discharge from eye(s), double vision, erythema, eye pain, loss of vision or other ENT HEENT: Denies abnormal hearing, dysphagia, ear pain, epistaxis, headache(s), hearing loss, nasal congestion, nasal discharge, post nasal drip, sinus pressure, sore throat or other Cardiovascular Cardiovascular: Denies chest pain, claudication, dyspnea on exertion, edema, lightheadedness, orthopnea, palpitations, paroxysmal nocturnal dyspnea, rapid heart rate, syncope or other Respiratory/Chest Respiratory/Chest: Denies cough, dyspnea, excessive phlegm production, hemoptysis, productive cough, shortness of breath at rest, shortness of breath with exertion, wheezing or other Gastrointestinal Gastrointestinal: Reports constipation, nausea and vomiting; Denies abdominal pain, coffee ground emesis, diarrhea, dyspepsia, hematemesis, hematochezia, loose stools, melena or other Genitourinary Genitourinary: Denies burning urination, difficulty urinating, dysuria, hematuria, nocturia, urinary frequency, urinary hesitancy, urinary incontinence, urinary urgency or other Musculoskeletal Musculoskeletal: Denies arthralgias, back pain, joint pain, joint stiffness, joint swelling, myalgias, neck pain or other Neurologic Neurologic: Denies abnormal gait, abnormal speech, confusion, disequilibrium, dizziness, focal weakness, headache(s), numbness, paresthesias, seizure-like activity, seizures, syncope, tingling, tremor(s) or other Psychiatric Psychiatric: Reports depression; Denies anxiety, homicidal ideation, suicidal ideation or other Endocrine Endocrinology: Denies change in body appearance, cold intolerance, excessive sweating, heat intolerance, polydipsia, polyuria or other Hematologic/Lymphatic Hematologic/Lymphatic: Denies anemia, easy bleeding, easy bruising, lymphadenopathy or other Allergic/Immunologic Allergic/Immunologic: Denies rhinitis, hives, eczemia, asthma or other Vital Signs Vital Signs Vital Signs: 11/18/23 07:42 11/18/23 09:42 11/18/23 12:11 Temperature 97 F L Temperature Source Temporal Pulse Rate 80 82 70 Respiratory Rate 14 14 18 Blood Pressure 130/99 H 127/84 H 136/73 H Blood Pressure Mean 109 98 94 Pulse Ox 100 100 100 Oxygen Delivery Method Room Air Room Air Room Air Weight Weight: 79.379 kg Body Mass Index (BMI) 30.0 Physical Exam Const alert, oriented x3 and no apparent distress Constitutional Narrative: Overweight, older, white female, sitting up in bed, appears as if she is not feeling well but not toxic, currently feels comfortable, nursing at bedside General Appearance: cooperative HEENT normocephalic, head/scalp atraumatic, hearing grossly normal bilaterally and moist oral mucous membranes HEENT Narrative: Mallampati 3, no thrush, dentition is good Eyes PERRL, EOMs intact bilaterally and conjunctivae normal Eyes Narrative: No scleral icterus Neck no lymphadenopathy, supple, no JVD and no carotid bruits Neck Narrative: Trachea midline, no thyroid enlargement Resp normal respiratory effort, no retractions, no use of accessory muscles and clear to auscultation bilaterally Auscultation: Negative for rales, rhonchi or wheezes Cardio regular rate, regular rhythm, S1 normal heart sound, S2 normal heart sound, no rub, no gallops and no clicks; Negative for no murmurs Cardio Narrative: 2 out of 6 systolic murmur loudest at right upper sternal border GI normal to inspection, nondistended, normoactive bowel sounds, soft to palpation and non-tender Extremity no clubbing, cyanosis or edema Extremity Narrative: Pedal pulses are 2+ Skin no rashes or lesions noted, skin turgor normal, no jaundice, no petechiae and no mottling Skin Narrative: Postoperative incisions on abdomen and drain site are healing well with no signs of infection Neuro oriented x3, CN's II-XII intact bilaterally, moves all extremities and no focal motor deficits Speech: speech normal Psych affect normal Psych Narrative: Very pleasant, interacts appropriately Results Lab / Micro Data 11/18/23 08:15 11/18/23 08:15 Labs: Laboratory Results - last 24 hr 11/18/23 08:15: WBC 5.7, RBC 3.99 L, Hgb 11.1 L, Hct 35.1 L, MCV 88.0, MCH 27.8, MCHC 31.6 L, RDW Std Deviation 51.4 H, RDW Coeff of Tyrel 15.8 H, Plt Count 256, MPV 11.0, Immature Gran % (Auto) 0.400, Neut % (Auto) 72.3 H, Lymph % (Auto) 14.0 L, [place] % (Auto) 8.2, Eos % (Auto) 4.2, Baso % (Auto) 0.9, Absolute Neuts (auto) 4.1, Absolute Lymphs (auto) 0.80 L, Nucleated RBC % 0, Sodium 137, Potassium 3.7, Chloride 110 H, Carbon Dioxide 21.0, Anion Gap 6, BUN 35 H, Creatinine 3.68 H, Estim Creat Clear Calc 14.29, Est GFR (MDRD) Af Amer 16 L, Est GFR (MDRD) Non-Af 13 L, BUN/Creatinine Ratio 9.5 L, Glucose 126 H, Calcium 9.8, Total Bilirubin 0.50, AST 11 L, ALT 17, Alkaline Phosphatase 86, Total Protein 8.4 H, Albumin 3.3, Globulin 5.1 H, Albumin/Globulin Ratio 0.6 L 11/18/23 09:45: Urine Color Yellow, Urine Clarity Sl. Cloudy, Urine pH 6.5, Ur Specific [place] 1.005, Urine Protein 15 H, Urine Glucose (UA) Normal, Urine Ketones Negative, Urine Occult Blood 10 H, Urine Nitrite Negative, Urine Bilirubin Negative, Urine Urobilinogen Normal, Ur Leukocyte Esterase 500 H, Urine RBC 0-5 SEEN, Urine WBC 25-50 SEEN, Ur Squamous Epith Cells 0-5 SEEN, Urine Bacteria 1+, Urine Mucus 0 SEEN, Ur Random Sodium 31, Urine Creatinine 38.70 Imaging Radiology Impression Abdomen/Pelvis CT 11/18/23 07:59 IMPRESSION: Status post bilateral hernia repair. Fatty infiltration of the liver. Status post cholecystectomy. Stable nonobstructive bilateral intrarenal calculi. Stable left ovarian cyst. Electronically Signed: Andrea Duran MD at 9:05 EDT , Assessment & Plan Assessment/Plan (1) Acute constipation: (2) Acute kidney injury: (3) Abnormal urinalysis: PLAN: Plan YANA -Baseline creatinine on October 19 was 1.2 -Serum creatinine on admission was 3.68 -She does not appear to be dehydrated as the specific gravity on her UA was 1.005 -FeNa was calculated and is 2.2% indicative of intrinsic renal failure -Urine output has been normal -CT of the abdomen pelvis showed no abnormalities in the kidneys to suggest obstruction and the bladder was decompressed -Will check renal ultrasound -Check C3/C4/CH 50 -Will gently hydrate for now to see if this makes a difference but I am not convinced that this is going to change anything -Hold home losartan -Consult nephrology Acute constipation -Likely related to her recent Kaushik fundoplication -Schedule MiraLAX twice daily -Check TSH -Was given magnesium citrate in the emergency department Nausea and vomiting -Etiology is unclear -This has been going on and off since surgery and may be expected with her recent Kaushik fundoplication -She was given antiemetics at discharge after her procedure -Will continue to monitor and have her follow-up with her surgeon after discharge -Start Protonix 40 mg daily Abnormal urinalysis -Suggestive of UA -For now with YANA we will go ahead and treat with ceftriaxone for now and obtain a culture prior to antibiotics even though she is asymptomatic Chronic anemia -Hemoglobin appears to be stable -Will continue to monitor -Continue home iron supplementation Hypertension -Hold home losartan with renal dysfunction -As needed hydralazine available for systolic pressure greater than 160 Vitamin D deficiency -Restart cholecalciferol discharge History of GERD/hiatal hernia -Postop Kaushik fundoplication -Continue home PPI ADHD -Restart home methylphenidate at discharge Depression -Continue home bupropion DVT prophylaxis -Heparin 3 times daily with renal dysfunction CODE STATUS Full code Charges/Coding Visit Charges Inpatient E&M: 43296 Init Hosp L3
[2023-11-18] MEDS: Magnesium Citrate 300 ML PO (13:02)
[2023-11-18 13:15] LABS: Thyroid Stim Hormone (TSH) 3.97 uIU/mL (0.358-3.74)
[2023-11-18] MEDS: 0.9% Normal Saline (1000mL) 1,000 ML 100 ML IV (13:44)
[2023-11-18] MEDS: Ceftriaxone 1 GM/50 ML BAG IV (14:01)
[2023-11-18] MEDS: Ensure Plus High Protein 120 ML LIQUID PO (14:01)
[2023-11-18] MEDS: Ondansetron 4 MG/2 ML Vial IV (14:01)
[2023-11-18] MEDS: Heparin Injection (Vial) 5,000 UNIT/ML VIAL 5000 UNIT SC ×2 (14:03→19:42)
[2023-11-18] MEDS: Pantoprazole Sodium 40 MG Tablet PO (15:44)
[2023-11-18] MEDS: Polyethylene Glycol 3350 17 GM PACKET PO (19:41)
[2023-11-19] MEDS: 0.9% Normal Saline (1000mL) 1,000 ML 100 ML IV (01:13)
[2023-11-19 04:04] VITALS: BP 143/67; PULSE 76; RESP 16; TEMP 36.6; O2SAT 100
[2023-11-19 04:59] LABS: Absolute Lymphocyte Count 1.08 X10^3/uL (0.83-4.51); Absolute Neutrophil Count 5.2 X10^3/uL (2.0-7.7); Basophil# 0.06 X10^3/uL; Basophil% 0.8 % (0-1); Eosinophil# 0.29 X10^3/uL; Hematocrit 30.6 % (37-47); Hemoglobin 9.7 g/dL (12.0-15.0); Lymphocyte # 1.08 X10^3/ul (0.83-4.51); Mean Corp Hgb Conc 31.7 g/dL (32-36); Mean Corpuscular Hgb 27.8 pg (27.0-32.0); Mean Corpuscular Volume 87.7 fL (81-99); Mean Platelet Vol. 11.6 fl (6.2-12.0); Monocyte# 0.55 X10^3/uL; Monocyte% 7.6 % (0-10); NRBC Flagged by Analyzer 0 % (0-5); Neutrophil # 5.19 X10^3/uL (2.7-7.7); Neutrophil % 72.3 % (47-70); Platelet Count 220 K/mm3 (150-450); RBC Distribution Width CV 15.9 % (11.6-14.6); RBC Distribution Width SD 51.3 fl (35.1-43.9); Red Blood Count 3.49 M/mm3 (4.2-5.4); White Blood Count 7.2 K/mm3 (4.4-11.0)
[2023-11-19 05:19] LABS: Anion Gap 8 (5-15); BUN 29 mg/dL (7-18); BUN/Creat Ratio 9.4 RATIO (10-20); Calcium,Total 8.4 mg/dL (8.5-10.1); Chloride 118 mmol/L (98-107); Creatinine, Serum 3.09 mg/dL (0.55-1.02); EST Glomerular Filtration Rate 16 mL/min (>60); Est Glom Filt Rate - Afr Amer 19 mL/min (>60); Estimated Creatinine Clearance 16.88 ml/min; Glucose 95 mg/dL (74-106); Magnesium 2.5 mg/dL (1.6-2.6); Phosphorus 2.8 mg/dL (2.5-4.9); Potassium 3.6 mmol/L (3.5-5.1); Sodium Level 145 mmol/L (136-145)
[2023-11-19 07:01] VITALS: O2SAT 96
[2023-11-19] MEDS: 0.45% Normal Saline 1,000 ML 125 ML IV ×2 (07:57→18:00)
--- NOTE | 2023-11-19 07:57 | CPS ---
SMI held due to pt not feeling well this am
[2023-11-19] MEDS: Heparin Injection (Vial) 5,000 UNIT/ML VIAL 5000 UNIT SC ×3 (08:01→21:39)
[2023-11-19 08:33] VITALS: BMI 29.7
[2023-11-19] MEDS: Ceftriaxone 1 GM/50 ML BAG IV (09:59)
[2023-11-19] MEDS: Polyethylene Glycol 3350 17 GM PACKET PO (10:00)
[2023-11-19] MEDS: Pantoprazole Sodium 40 MG Tablet PO (10:00)
[2023-11-19 10:01] VITALS: BP 111/61; PULSE 73; RESP 16; TEMP 36.8; O2SAT 97
--- NOTE | 2023-11-19 10:31 | CASEMGMT ---
RN GUILHERME Assessment: Face to Face with pt for initial transition planning/care coordination assessment. RN CM introduced self and role at [facility], pt voices understanding and consents to assessment. Pt is A&O x4 and answers all questions appropriately at this time. Care providers, pharmacy, and demographics verified/updated. Admitting Dx: YANA PCP: Karli Bennett Specialists: Navdeep @ [facility] (surgeon) Preferred Pharmacy: [facility] in [place] [facility] Pres[facility] Benefit: yes LNOK: Spouse Ryley Living Arrangements: Pt lives at home with spouse. Home is 2 stories with the bathroom on the 2nd floor, 3 steps to enter the home. Pt reports no issues managing the stairs at baseline. Pt is independent with ADLs and IADLs. Transportation: Pt drives self and denies concerns with transportation. DME: Pt does not use DME at baseline but she does have a walker HHC/SNF: No history Pt states no concerns with going home at time of dc. Pt states no further concerns/needs. CM to follow. Advised pt to ask CM if any further question/concerns/needs arise, voices understanding. Pt Goal: Home Plan: Home with no needs Charley ESPINOSA, RN, CCM
--- NOTE | 2023-11-19 11:02 | CPS ---
Pt was getting ready to get into shower. Pt was instructed to do her breathing exercises when she got back into bed.
--- NOTE | 2023-11-19 12:48 | PCM.PN.HOSP ---
Reason for Visit Reason for Visit: Constipation Subjective Subjective Patient with about 5 bowel movements yesterday and had good response to treatment. Renal function is improving however still greater than 3. Patient states she feels much better. Her nausea has improved since she had large bowel movements. No complaints at this time. Objective Data Objective Data Vital Signs: Vital Signs Temp Pulse Resp BP Pulse Ox O2 Del Method 98.3 F 73 16 111/61 97 Room Air 11/19/23 10:01 11/19/23 10:11/19/23 10:11/19/23 10:11/19/23 10:11/19/23 10:01 Oxygen Delivery Method Room Air Weight: 78.6 kg Body Mass Index (BMI) 29.7 Intake & Output: Intake and Output for Last 24 Hours 11/17/23 11/18/23 11/19/23 23:59 23:59 23:59 Intake Total 1140 / 1380 1583.33 / 1583.33 Output Total 3 / 3 Balance 1140 / 1377 1580.33 / 1580.33 Lab / Micro Data 11/19/23 04:15 11/19/23 04:15 Labs: Laboratory Results - last 24 hr 11/18/23 08:15: TSH 3.97 H 11/19/23 04:15: WBC 7.2, RBC 3.49 L, Hgb 9.7 L, Hct 30.6 L, MCV 87.7, MCH 27.8, MCHC 31.7 L, RDW Std Deviation 51.3 H, RDW Coeff of Tyrel 15.9 H, Plt Count 220, MPV 11.6, Immature Gran % (Auto) 0.300, Neut % (Auto) 72.3 H, Lymph % (Auto) 15.0 L, [place] % (Auto) 7.6, Eos % (Auto) 4.0, Baso % (Auto) 0.8, Absolute Neuts (auto) 5.2, Absolute Lymphs (auto) 1.08, Nucleated RBC % 0, Sodium 145, Potassium 3.6, Chloride 118 H, Carbon Dioxide 19.0 L, Anion Gap 8, BUN 29 H, Creatinine 3.09 H, Estim Creat Clear Calc 16.88, Est GFR (MDRD) Af Amer 19 L, Est GFR (MDRD) Non-Af 16 L, BUN/Creatinine Ratio 9.4 L, Glucose 95, Calcium 8.4 L, Phosphorus 2.8, Magnesium 2.5 Radiography Diagnostic Testing: Radiology Impression Renal Ultrasound 11/18/23 12:43 IMPRESSION: Bilateral nonobstructive intrarenal calculi. No evidence of hydronephrosis. Electronically Signed: Andrea Duran MD at 15:09 EDT , Physical Exam Const alert, oriented x3, no apparent distress, healthy appearing and well nourished; Negative for average body habitus Constitutional Narrative: Overweight, older, white female, sitting up in bed, watching television, appears well, not toxic General Appearance: cooperative HEENT normocephalic, head/scalp atraumatic, hearing grossly normal bilaterally and moist oral mucous membranes HEENT Narrative: Mallampati 2-3, no thrush, dentition is good Resp normal respiratory effort, no retractions, no use of accessory muscles and clear to auscultation bilaterally Auscultation: Negative for rales, rhonchi or wheezes Cardio regular rate, regular rhythm, S1 normal heart sound, S2 normal heart sound, no murmurs, no rub, no gallops and no clicks GI normal to inspection, nondistended, normoactive bowel sounds, soft to palpation and non-tender Extremity no clubbing, cyanosis or edema Extremity Narrative: Pedal pulses are 2+ Neuro oriented x3, moves all extremities and no focal motor deficits Speech: speech normal Psych affect normal Psych Narrative: Very pleasant, interacts appropriately Assessment & Plan Assessment/Plan (1) Acute constipation: (2) Acute kidney injury: (3) Abnormal urinalysis: PLAN: Plan YANA -Baseline creatinine on October 19 was 1.2 -Serum creatinine on admission was 3.68--> down to 3.08 today with just IV fluids -FeNa was calculated and is 2.2% indicative of intrinsic renal failure -Urine output remains good -CT of the abdomen pelvis showed no abnormalities in the kidneys to suggest obstruction and the bladder was decompressed -Renal ultrasound shows bilateral nonobstructive intrarenal calculi with no evidence of hydronephrosis and normal kidney size -C3/C4/CH 50 are all pending -Continue IV fluids but changed to LR due to the normal saline driving her chloride up -Continue to hold losartan -Nephrology is consulting-await input -No current needs for renal replacement therapy Acute constipation -Resolved this patient had 5 bowel movements yesterday -Decrease MiraLAX to daily -TSH was slightly elevated at 3.97 however is highly suspect this is euthyroid sick and will not pursue any other workup at this time as she is now having bowel movements -Continue as needed senna Non-anion gap metabolic acidosis -Like related to the normal saline driving her chloride up -Transition to LR at the same rate -Repeat lab in a.m. Nausea and vomiting -Resolved Abnormal urinalysis -Suggestive of UTI -Cultures pending -Continue ceftriaxone Chronic anemia -Drop in hemoglobin however patient's received aggressive hydration -No signs of acute bleeding -Will continue to monitor -Continue home iron supplementation Hypertension -Hold home losartan with renal dysfunction -Blood pressures are currently stable -As needed hydralazine available for systolic pressure greater than 160 Vitamin D deficiency -Restart cholecalciferol discharge History of GERD/hiatal hernia -Postop Kaushik fundoplication -Continue home PPI ADHD -Restart home methylphenidate at discharge Depression -Continue home bupropion DVT prophylaxis -Heparin 3 times daily with renal dysfunction CODE STATUS Full code Charges/Coding Visit Charges Inpatient E&M: 19952 Subs Hosp L2
[2023-11-19 15:11] VITALS: BP 132/62; PULSE 75; RESP 16; TEMP 36.8; O2SAT 100
[2023-11-19 21:15] VITALS: BP 121/72; PULSE 88; RESP 18; TEMP 36.8; O2SAT 97
[2023-11-20] MEDS: 0.45% Normal Saline 1,000 ML 125 ML IV ×3 (01:50→17:10)
[2023-11-20 03:15] VITALS: BP 126/75; PULSE 72; RESP 18; TEMP 36.6; O2SAT 98
[2023-11-20 04:39] VITALS: BMI 30.6
[2023-11-20] MEDS: Heparin Injection (Vial) 5,000 UNIT/ML VIAL 5000 UNIT SC ×3 (05:33→21:11)
[2023-11-20 06:46] LABS: Absolute Lymphocyte Count 1.37 X10^3/uL (0.83-4.51); Absolute Neutrophil Count 4.5 X10^3/uL (2.0-7.7); Basophil# 0.05 X10^3/uL; Basophil% 0.7 % (0-1); Eosinophils% 5.8 % (0-5); Hematocrit 31.3 % (37-47); Hemoglobin 9.9 g/dL (12.0-15.0); Lymphocyte # 1.37 X10^3/ul (0.83-4.51); Lymphocyte % 19.7 % (19-41); Mean Corp Hgb Conc 31.6 g/dL (32-36); Mean Corpuscular Volume 88.7 fL (81-99); Mean Platelet Vol. 11.6 fl (6.2-12.0); Monocyte# 0.57 X10^3/uL; Monocyte% 8.2 % (0-10); NRBC Flagged by Analyzer 0 % (0-5); Neutrophil # 4.54 X10^3/uL (2.7-7.7); Neutrophil % 65.3 % (47-70); Platelet Count 209 K/mm3 (150-450); RBC Distribution Width CV 16.3 % (11.6-14.6); RBC Distribution Width SD 53.1 fl (35.1-43.9); Red Blood Count 3.53 M/mm3 (4.2-5.4)
[2023-11-20 07:08] LABS: Anion Gap 5 (5-15); BUN 21 mg/dL (7-18); BUN/Creat Ratio 7.6 RATIO (10-20); Calcium,Total 8.5 mg/dL (8.5-10.1); Chloride 116 mmol/L (98-107); Creatinine, Serum 2.75 mg/dL (0.55-1.02); EST Glomerular Filtration Rate 18 mL/min (>60); Est Glom Filt Rate - Afr Amer 22 mL/min (>60); Estimated Creatinine Clearance 19.31 ml/min; Glucose 103 mg/dL (74-106); Potassium 3.4 mmol/L (3.5-5.1); Sodium Level 140 mmol/L (136-145)
[2023-11-20] MEDS: Polyethylene Glycol 3350 17 GM PACKET PO (09:55)
[2023-11-20] MEDS: Pantoprazole Sodium 40 MG Tablet PO (09:56)
[2023-11-20] MEDS: Ceftriaxone 1 GM/50 ML BAG IV (09:56)
[2023-11-20] MEDS: Potassium Chloride Oral Tablet 20 MEQ 40 MEQ PO (10:04)
[2023-11-20 10:05] VITALS: BP 121/80; PULSE 68; RESP 16; TEMP 36.3; O2SAT 100
--- NOTE | 2023-11-20 11:22 | PCM.PN.HOSP ---
Reason for Visit Reason for Visit: Constipation Subjective Subjective Patient continues to have good bowel movements. Kidney function is resolving however not completely resolved. Serum creatinine is down to 2.75. Patient denies any urinary symptoms. Urine culture remains pending. No complaints at this time. Nephrology has not yet seen the patient. We have recalled the consult. Objective Data Objective Data Vital Signs: Vital Signs Temp Pulse Resp BP Pulse Ox O2 Del Method 97.3 F L 68 16 121/80 H 100 Room Air 11/20/23 10:11/20/23 10:05 11/20/23 10:05 11/20/23 10:11/20/23 10:05 11/20/23 10:05 Oxygen Delivery Method Room Air Weight: 80.9 kg Body Mass Index (BMI) 30.6 Intake & Output: Intake and Output for Last 24 Hours 11/18/23 11/19/23 11/20/23 23:59 23:59 23:59 Intake Total 1140 / 1380 3933.33 / 4483.33 2939.17 / 2939.17 Output Total 3 / 3 Balance 1140 / 1377 3930.33 / 4480.33 2939.17 / 2939.17 Lab / Micro Data 11/20/23 05:54 11/20/23 05:54 Labs: Laboratory Results - last 24 hr 11/20/23 05:54: WBC 7.0, RBC 3.53 L, Hgb 9.9 L, Hct 31.3 L, MCV 88.7, MCH 28.0, MCHC 31.6 L, RDW Std Deviation 53.1 H, RDW Coeff of Tyrel 16.3 H, Plt Count 209, MPV 11.6, Immature Gran % (Auto) 0.300, Neut % (Auto) 65.3, Lymph % (Auto) 19.7, [place] % (Auto) 8.2, Eos % (Auto) 5.8 H, Baso % (Auto) 0.7, Absolute Neuts (auto) 4.5, Absolute Lymphs (auto) 1.37, Nucleated RBC % 0, Sodium 140, Potassium 3.4 L, Chloride 116 H, Carbon Dioxide 19.0 L, Anion Gap 5, BUN 21 H, Creatinine 2.75 H, Estim Creat Clear Calc 19.31, Est GFR (MDRD) Af Amer 22 L, Est GFR (MDRD) Non-Af 18 L, BUN/Creatinine Ratio 7.6 L, Glucose 103, Calcium 8.5 Physical Exam Const alert, oriented x3, no apparent distress, healthy appearing and well nourished; Negative for average body habitus Constitutional Narrative: Overweight, older, white female, sitting up in bed, watching television, appears well, not toxic, nursing at bedside General Appearance: cooperative HEENT normocephalic, head/scalp atraumatic, hearing grossly normal bilaterally and moist oral mucous membranes HEENT Narrative: Mallampati 2, no thrush Resp normal respiratory effort, no retractions, no use of accessory muscles and clear to auscultation bilaterally Auscultation: Negative for rales, rhonchi or wheezes Cardio regular rate, regular rhythm, S1 normal heart sound, S2 normal heart sound, no murmurs, no rub, no gallops and no clicks GI normal to inspection, nondistended, normoactive bowel sounds, soft to palpation and non-tender Extremity no clubbing, cyanosis or edema Extremity Narrative: Pedal pulses are 2+ Neuro oriented x3, moves all extremities and no focal motor deficits Speech: speech normal Psych affect normal Psych Narrative: Very pleasant, interacts appropriately Assessment & Plan Assessment/Plan (1) Acute constipation: (2) Acute kidney injury: (3) Abnormal urinalysis: PLAN: Plan YANA -Baseline creatinine on October 19 was 1.2 -Serum creatinine on admission was 3.68--> down to 2.75 from 3.08 yesterday -FeNa was calculated and is 2.2% indicative of intrinsic renal failure -Urine output remains good -C3/C4/CH 50 are all still pending -Continue IV fluids with LR--> chloride a bit better today with change in fluids yesterday -Continue to hold losartan -Nephrology is consulting-await input -No current needs for renal replacement therapy Acute constipation -Resolved -Continue daily MiraLAX -As needed senna available Non-anion gap metabolic acidosis -Like related to the normal saline driving her chloride up -Improving with change to LR yesterday Abnormal urinalysis -Suggestive of UTI -Cultures remain pending -Continue ceftriaxone Chronic anemia -Hemoglobin is stable and suspect drop from admission was related to fluid administration -No signs of acute bleeding -Will continue to monitor -Continue home iron supplementation Hypertension -Hold home losartan with renal dysfunction -Blood pressures are currently stable -As needed hydralazine available for systolic pressure greater than 160 Vitamin D deficiency -Restart cholecalciferol discharge History of GERD/hiatal hernia -Post-op Kaushik fundoplication -Continue home PPI -Outpatient follow-up with surgery per previous instructions after discharge ADHD -Restart home methylphenidate at discharge Depression -Continue home bupropion DVT prophylaxis -Heparin 3 times daily with renal dysfunction CODE STATUS Full code Charges/Coding Visit Charges Inpatient E&M: 39909 Subs Hosp L2
[2023-11-20 16:18] VITALS: BP 132/77; PULSE 79; RESP 16; TEMP 36.7; O2SAT 97
[2023-11-20 22:15] VITALS: BP 137/81; PULSE 74; RESP 16; TEMP 36.8; O2SAT 98
[2023-11-21] MEDS: 0.45% Normal Saline 1,000 ML 125 ML IV ×2 (01:22→08:57)
[2023-11-21 04:05] VITALS: BP 138/86; PULSE 72; RESP 16; TEMP 36.7; O2SAT 97
[2023-11-21 04:46] VITALS: BMI 30.9
[2023-11-21] MEDS: Heparin Injection (Vial) 5,000 UNIT/ML VIAL 5000 UNIT SC (05:24)
[2023-11-21 05:54] LABS: Hematocrit 28.7 % (37-47); Hemoglobin 9.3 g/dL (12.0-15.0); Mean Corp Hgb Conc 32.4 g/dL (32-36); Mean Corpuscular Hgb 28.4 pg (27.0-32.0); Mean Corpuscular Volume 87.5 fL (81-99); Mean Platelet Vol. 11.8 fl (6.2-12.0); Platelet Count 194 K/mm3 (150-450); RBC Distribution Width CV 16.2 % (11.6-14.6); Red Blood Count 3.28 M/mm3 (4.2-5.4); White Blood Count 5.9 K/mm3 (4.4-11.0)
[2023-11-21 06:17] LABS: Anion Gap 7 (5-15); BUN 22 mg/dL (7-18); BUN/Creat Ratio 9.5 RATIO (10-20); Calcium,Total 8.2 mg/dL (8.5-10.1); Chloride 115 mmol/L (98-107); Creatinine, Serum 2.31 mg/dL (0.55-1.02); EST Glomerular Filtration Rate 22 mL/min (>60); Est Glom Filt Rate - Afr Amer 27 mL/min (>60); Estimated Creatinine Clearance 23.08 ml/min; Glucose 112 mg/dL (74-106); Potassium 3.5 mmol/L (3.5-5.1); Sodium Level 141 mmol/L (136-145)
[2023-11-21 07:54] VITALS: O2SAT 98
[2023-11-21 08:46] VITALS: BP 131/77; PULSE 74; RESP 18; TEMP 36.4; O2SAT 97
[2023-11-21] MEDS: Pantoprazole Sodium 40 MG Tablet PO (08:57)
[2023-11-21] MEDS: Ceftriaxone 1 GM/50 ML BAG IV (08:57)
[2023-11-21] MEDS: Polyethylene Glycol 3350 17 GM PACKET PO (08:57)
--- NOTE | 2023-11-21 09:44 | PN.HOSP_ITS ---
Reason for Visit Reason for Visit: Diagnoses Constipation, unspecified (11/18/23) Acute kidney failure, unspecified (11/18/23) Unspecified abnormal findings in urine (11/18/23) Subjective Subjective Feels good. No events. Objective Data Objective Data Vital Signs: Vital Signs Temp Pulse Resp BP Pulse Ox O2 Del Method 36.4 C L 74 18 131/77 H 97 Room Air 11/21/23 08:46 11/21/23 08:46 11/21/23 08:46 11/21/23 08:46 11/21/23 08:46 11/21/23 08:46 Oxygen Delivery Method Room Air Weight: 81.6 kg Body Mass Index (BMI) 30.9 Intake & Output: Intake and Output for Last 24 Hours 11/19/23 11/20/23 11/21/23 23:59 23:59 23:59 Intake Total 3933.33 / 4483.33 5223.34 / 5703.34 2957.92 / 2957.92 Output Total 3 / 3 Balance 3930.33 / 4480.33 5223.34 / 5703.34 2957.92 / 2957.92 Lab / Micro Data 11/21/23 04:58 11/21/23 04:58 Labs: Laboratory Results - last 24 hr 11/21/23 04:58: WBC 5.9, RBC 3.28 L, Hgb 9.3 L, Hct 28.7 L, MCV 87.5, MCH 28.4, MCHC 32.4, RDW Std Deviation 52.0 H, RDW Coeff of Tyrel 16.2 H, Plt Count 194, MPV 11.8, Sodium 141, Potassium 3.5, Chloride 115 H, Carbon Dioxide 19.0 L, Anion Gap 7, BUN 22 H, Creatinine 2.31 H, Estim Creat Clear Calc 23.08, Est GFR (MDRD) Af Amer 27 L, Est GFR (MDRD) Non-Af 22 L, BUN/Creatinine Ratio 9.5 L, Glucose 112 H, Calcium 8.2 L Micro: Microbiology 11/18/23 09:45 Urine, Clean Catch Urine Culture - Final Culture exhibits no growth. Physical Exam Const alert and no apparent distress HEENT head/scalp atraumatic and moist oral mucous membranes Resp normal respiratory effort, no retractions, no use of accessory muscles and clear to auscultation bilaterally Cardio regular rate, regular rhythm, S1 normal heart sound and S2 normal heart sound GI normal to inspection, nondistended, normoactive bowel sounds, soft to palpation, non-tender and non-distended Assessment & Plan Assessment/Plan (1) Acute constipation: (2) Acute kidney injury: (3) Abnormal urinalysis: PLAN: Plan YANA * Improved * FeNa was calculated and is 2.2% indicative of intrinsic renal failure * -Urine output remains good * C3/C4/CH 50 are all still pending * Continue IV fluids with LR--> chloride a bit better today with change in fluids yesterday * Continue to hold losartan * Nephrology is consulting-hold on losartan. follow up as outpt. * No current needs for renal replacement therapy Acute constipation * Resolved * Continue daily MiraLAX * As needed senna available Non-anion gap metabolic acidosis * -Like related to the normal saline driving her chloride up-Improving with keyon nge to LR yesterday Abnormal urinalysis * UCx negative * DC abx. Chronic conditions: * Chronic anemia-Hemoglobin is stable and suspect drop from admission was related to fluid administration-No signs of acute bleeding-Will continue to monitor-Continue home iron supplementation * Hypertension-Hold home losartan with renal dysfunction-Blood pressures are currently stable-As needed hydralazine available for systolic pressure greater than 160 * Vitamin D deficiency-Restart cholecalciferol discharge * History of GERD/hiatal xejkga-Khmr-fe Kaushik fundoplication-Continue home PPI- Outpatient follow-up with surgery per previous instructions after discharge * ADHD-Restart home methylphenidate at discharge * Depression-Continue home bupropion DVT prophylaxis -Heparin 3 times daily with renal dysfunction CODE STATUS Full code DC home.
--- NOTE | 2023-11-21 11:40 | PCM.CONS.R ---
Documented by User: SOLANGE Trinidad 11/21/23 11:54 Assessment & Plan Assessment/Plan (1) Acute kidney injury: (2) Acute constipation: PLAN: Plan This is a very pleasant 73-year-old female with past medical history significant for hypertension, hiatal hernia who recently underwent Kaushik fundoplication but a month ago at [facility]. New medications at time of hospital discharge included stool softener, Zofran and Tylenol (patient was not discharged home on any antibiotics). After discharge from hospital patient had not been taking her stool softeners, but was taking zofran as needed for persistent nausea; she presented to the emergency room with complaints of constipation, nausea. In the emergency room serum creatinine 3.68, potassium and bicarb were normal. Patient was started on IV fluids. Losartan was put on hold. Nephrology consulted in view of rising serum creatinine. Patient did have labs on November 09, 2022 creatinine was 1.13; creatinine was 1.2 mg/dL on October 20, 2023 at [facility]. Quite possibly SCr 1.2 is baseline. Today creatinine is 2.31 mg/dL. Overall renal function is improving, patient reports feeling better overall. She is nonoliguric. Complements and CH50 were sent and pending. Renal US no evidence of hydronephrosis. UA +500 leuk estrace, 15 protein, 10 occult blood. Possible YANA prerenal from recent poor oral intake and concurrent losartan use. With gentle IV fluids, holding losartan overall renal function has improved. 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 Patient to be discharged to home today and will arrange for hospital follow-up. Patient aware she will be off losartan at time of discharge. Also advised against NSAIDs. Patient reports she has appointment this week with her PCP in which she will have labs obtained. Thank you for allowing us to participate in the care of Ms. Sheehan. HPI Consult Data Date of Consult: 11/21/23 HPI Narrative HPI Narrative: REILLY SHEEHAN, is a 73 F who presented to the emergency room on November 17 with complaints of feeling of constipation, nausea and poor oral intake. Patient just recently underwent Kaushik fundoplication at [facility] on October 21, 2023. After that when patient arrived home she got worried that her brother unexpectedly . After his and she got worried that a friend unexpectedly . Patient reports that she had not been taking her stool softeners as ordered. She started developing intermittent nausea and was taking Zofran as prescribed. She did not have any abdominal pain, fevers, chills, patient did not notice any hematuria or dysuria. Patient had not been vomiting. Despite feeling unwell she continued to take her prescribed medications. She had not been taking any NSAIDs. Patient has past medical history significant for hypertension, hiatal hernia. Patient does report that she routinely has labs through her PCP and has been told that she has a mildly elevated creatinine level, she has not been seen by control center operator in past. In the emergency room patient's creatinine was 3.68, she was started on IV fluids and admitted for further evaluation and treatment. Nephrology consulted in view of rising creatinine. [facility] Medical History (Updated 11/18/23 @ 15:[address] Janet Bal, ) Acquired deformity of nail ADHD Anemia Chronic bronchitis Concussion Family history of breast cancer Gallstones Gastritis Gastrointestinal problem Heart murmur High blood pressure History of echocardiogram History of IBS History of irregular heartbeat IBS (irritable bowel syndrome) Kidney stones Low iron Mitral valve prolapse Non-smoker Pneumonia Vision problems Wears glasses Home Medications bupropion HCl 300 mg 24 hr tablet, extended release 300 mg PO QAM 09/14/22 [History Last Taken 11/18/23] cholecalciferol (vitamin D3) 10 mcg (400 unit) tablet 10 mcg PO .3 X Week 09/14/22 [History Last Taken Unknown] ferrous sulfate 325 mg (65 mg iron) tablet (Feosol) 325 mg PO .3 X a week 09/14/22 [History Last Taken 11/17/23] multivitamin (Daily Multi-Vitamin tablet) 1 tab PO DAILY 09/14/22 [History Last Taken 11/17/23] methylphenidate HCl 20 mg tablet,extended release 20 mg PO DAILY 11/18/23 [History Last Taken 11/17/23] omeprazole 40 mg capsule,delayed release 40 mg PO DAILY 11/18/23 [History Last Taken 11/18/23] ondansetron HCl 4 mg tablet 4 mg PO PRN nausea 11/18/23 [History Last Taken Unknown] Allergy/AdvReac Type Severity Reaction Status Date / Time latex Allergy Mild Rash Verified 11/18/23 07:43 clindamycin [From Cleocin] AdvReac Rash Verified 11/18/23 07:43 Family History Mother Arthritis Breast cancer Grandfather Cancer Grandmother Diabetes Father CVA (cerebral vascular accident) Other Parkinson disease Surgical History (Updated 11/18/23 @ 15:[address] Janet Bal DO) History of cholecystectomy History of colonoscopy History of hernia repair History of Kaushik fundoplication History of tonsillectomy [place] teeth extracted Social History Smoking Status: Never smoker alcohol intake: never substance use type: does not use ROS ROS Narrative As in HPI and past medical history Physical Exam Narrative Alert and orient x 3, no apparent distress S1, S2, RRR Lung sounds clear Abdomen soft, nontender, positive bowel sounds no edema Lab / Micro Data 11/21/23 04:58 11/21/23 04:58 Labs: Laboratory Results - last 24 hr 11/21/23 04:58: WBC 5.9, RBC 3.28 L, Hgb 9.3 L, Hct 28.7 L, MCV 87.5, MCH 28.4, MCHC 32.4, RDW Std Deviation 52.0 H, RDW Coeff of Tyrel 16.2 H, Plt Count 194, MPV 11.8, Sodium 141, Potassium 3.5, Chloride 115 H, Carbon Dioxide 19.0 L, Anion Gap 7, BUN 22 H, Creatinine 2.31 H, Estim Creat Clear Calc 23.08, Est GFR (MDRD) Af Amer 27 L, Est GFR (MDRD) Non-Af 22 L, BUN/Creatinine Ratio 9.5 L, Glucose 112 H, Calcium 8.2 L Micro: Microbiology 11/18/23 09:45 Urine, Clean Catch Urine Culture - Final Culture exhibits no growth. Documented by User: Dr. Rasta Tyler MD 11/21/23 16:22 Assessment & Plan Assessment/Plan (1) Acute kidney injury: (2) Acute constipation: HPI Consult Data Date of Consult: 11/21/23 [facility] Medical History (Updated 11/18/23 @ 15:[address] Janet Bal DO) Acquired deformity of nail ADHD Anemia Chronic bronchitis Concussion Family history of breast cancer Gallstones Gastritis Gastrointestinal problem Heart murmur High blood pressure History of echocardiogram History of IBS History of irregular heartbeat IBS (irritable bowel syndrome) Kidney stones Low iron Mitral valve prolapse Non-smoker Pneumonia Vision problems Wears glasses Home Medications bupropion HCl 300 mg 24 hr tablet, extended release 300 mg PO QAM 09/14/22 [History Last Taken 11/18/23] cholecalciferol (vitamin D3) 10 mcg (400 unit) tablet 10 mcg PO .3 X Week 09/14/22 [History Last Taken Unknown] ferrous sulfate 325 mg (65 mg iron) tablet (Feosol) 325 mg PO .3 X a week 09/14/22 [History Last Taken 11/17/23] multivitamin (Daily Multi-Vitamin tablet) 1 tab PO DAILY 09/14/22 [History Last Taken 11/17/23] methylphenidate HCl 20 mg tablet,extended release 20 mg PO DAILY 11/18/23 [History Last Taken 11/17/23] omeprazole 40 mg capsule,delayed release 40 mg PO DAILY 11/18/23 [History Last Taken 11/18/23] ondansetron HCl 4 mg tablet 4 mg PO PRN nausea 11/18/23 [History Last Taken Unknown] Allergy/AdvReac Type Severity Reaction Status Date / Time latex Allergy Mild Rash Verified 11/18/23 07:43 clindamycin [From Cleocin] AdvReac Rash Verified 11/18/23 07:43 Family History Mother Arthritis Breast cancer Grandfather Cancer Grandmother Diabetes Father CVA (cerebral vascular accident) Other Parkinson disease Surgical History (Updated 11/18/23 @ 15:[address] Janet Bal DO) History of cholecystectomy History of colonoscopy History of hernia repair History of Kaushik fundoplication History of tonsillectomy [place] teeth extracted Social History Smoking Status: Never smoker alcohol intake: never substance use type: does not use Lab / Micro Data 11/21/23 04:58 11/21/23 04:58
--- NOTE | 2023-11-21 11:49 | DS.PCM_ITS ---
Providers Date of Admission: 11/18/23 Primary Care Physician: Dr. Karli Bennett MD Consultations 11/18/23 13:17 Consult: Nephrology Routine Consulting Provider: Radha Mccray Reason for Consult: guido EMERGENT Consult: No MD Notified: Yes Date Notified: 11/20/23 Time Notified: 08:09 Method of Notification: Answering Service Reason For Visit: GUIDO Diagnosis Discharge Diagnosis (1) Acute constipation: Status: Acute Code(s): K59.00 - Constipation, unspecified (2) Acute kidney injury: Status: Acute Code(s): N17.9 - Acute kidney failure, unspecified (3) Abnormal urinalysis: Status: Acute Code(s): R82.90 - Unspecified abnormal findings in urine Plan GUIDO * Improved * FeNa was calculated and is 2.2% indicative of intrinsic renal failure * -Urine output remains good * C3/C4/CH 50 are all still pending * Continue IV fluids with LR--> chloride a bit better today with change in fluids yesterday * Continue to hold losartan * Nephrology is consulting-hold on losartan. follow up as outpt. * No current needs for renal replacement therapy Acute constipation * Resolved * Continue daily MiraLAX * As needed senna available Non-anion gap metabolic acidosis * -Like related to the normal saline driving her chloride up-Improving with change to LR yesterday Abnormal urinalysis * UCx negative * DC abx. Chronic conditions: * Chronic anemia-Hemoglobin is stable and suspect drop from admission was related to fluid administration-No signs of acute bleeding-Will continue to monitor-Continue home iron supplementation * Hypertension-Hold home losartan with renal dysfunction-Blood pressures are currently stable-As needed hydralazine available for systolic pressure greater than 160 * Vitamin D deficiency-Restart cholecalciferol discharge * History of GERD/hiatal lfuupf-Owdl-de Kaushik fundoplication-Continue home PPI-Outpatient follow-up with surgery per previous instructions after discharge * ADHD-Restart home methylphenidate at discharge * Depression-Continue home bupropion DVT prophylaxis -Heparin 3 times daily with renal dysfunction CODE STATUS Full code DC home. Medications at Discharge Home Medications bupropion HCl 300 mg 24 hr tablet, extended release 300 mg PO QAM 09/14/22 cholecalciferol (vitamin D3) 10 mcg (400 unit) tablet 10 mcg PO .3 X Week 09/14/22 ferrous sulfate 325 mg (65 mg iron) tablet (Feosol) 325 mg PO .3 X a week 09/14/22 multivitamin (Daily Multi-Vitamin tablet) 1 tab PO DAILY 09/14/22 methylphenidate HCl 20 mg tablet,extended release 20 mg PO DAILY 11/18/23 omeprazole 40 mg capsule,delayed release 40 mg PO DAILY 11/18/23 ondansetron HCl 4 mg tablet 4 mg PO PRN nausea 11/18/23 Hospital Course Operations None Procedures None Summary of Care Provided Minutes Spent on Discharge: 40 Hospital Course: Patient presents with constipation which resolved with treatment but did have acute kidney injury with her creatinine of 3.68. Did improve with IV fluids and now down to 2.31. Patient has been advised by myself as well as nephrology to hold off on her losartan and the follow-up with nephrology as outpatient to ensure ongoing improvement. Weight / BMI Weight Weight: 81.6 kg Body Mass Index (BMI) 30.9 ABG / Lab / Microbiology Data 11/21/23 04:58 11/21/23 04:58 Laboratory: Laboratory Results - last 24 hr 11/21/23 04:58: WBC 5.9, RBC 3.28 L, Hgb 9.3 L, Hct 28.7 L, MCV 87.5, MCH 28.4, MCHC 32.4, RDW Std Deviation 52.0 H, RDW Coeff of Tyrel 16.2 H, Plt Count 194, MPV 11.8, Sodium 141, Potassium 3.5, Chloride 115 H, Carbon Dioxide 19.0 L, Anion Gap 7, BUN 22 H, Creatinine 2.31 H, Estim Creat Clear Calc 23.08, Est GFR (MDRD) Af Amer 27 L, Est GFR (MDRD) Non-Af 22 L, BUN/Creatinine Ratio 9.5 L, Glucose 112 H, Calcium 8.2 L Microbiology: Microbiology 11/18/23 09:45 Urine, Clean Catch Urine Culture - Final Culture exhibits no growth. D/C Instructions Discharge Diet: No restrictions Meaningful Use Info Meaningful Use Diagnoses (Choose all that apply): None applicable Discharge Plan Admission Admit Date/Time: 11/18/23 12:35 Primary Reason for Your Visit: acute kidney injury. Attending Provider: Cooper Barboza Primary Care Provider: Karli Bennett Consulting Providers: Radha Mccray; Janet Bal Instructions Additional Instructions / Restrictions: He had acute kidney injury that improved with IV fluids. You hold off on your losartan for the time being. Do advise that you follow-up your primary care doctor in 1 to 2 weeks to have repeat lab work to see your kidney function is improving. Additionally follow-up with the nephrology/kidney doctor as outpatient. Discharge Orders/Prescriptions Prescriptions: Continued bupropion HCl 300 mg tablet extended release 24 hr 300 mg PO QAM ferrous sulfate [Feosol] 325 mg (65 mg iron) tablet 325 mg PO .3 X a week cholecalciferol (vitamin D3) 10 mcg (400 unit) tablet 10 mcg PO .3 X Week multivitamin [Daily Multi-Vitamin] Tablet 1 tab PO DAILY ondansetron HCl 4 mg tablet 4 mg PO PRN omeprazole 40 mg capsule,delayed release(DR/EC) 40 mg PO DAILY methylphenidate HCl 20 mg tablet extended release 20 mg PO DAILY Discontinued losartan 25 mg tablet 25 mg PO DAILY Referrals / Follow Up: [facility] [Provider Group] - Within 1 Month Karli Bennett MD [Primary Care Provider] - Within 2 Weeks Disposition Disposition (needs filled in before D/C Order can be placed): Home, Self Care Charges/Coding Visit Charges Inpatient E&M: 67175 Disch Hosp >30min
[2023-11-21 12:30] VITALS: BP 132/75; PULSE 70; RESP 18; TEMP 36.4; O2SAT 97
--- NOTE | 2023-11-21 12:51 | PHA.DC.MR.R ---
Pharmacy MA Med Reconciliation Pharmacy Service has performed discharge medication reconciliation for this patient. The patient's discharge medication list was reviewed for discrepancies and discrepancies were resolved. Medications at Discharge Home Medications bupropion HCl 300 mg 24 hr tablet, extended release 300 mg PO QAM 09/14/22 cholecalciferol (vitamin D3) 10 mcg (400 unit) tablet 10 mcg PO .3 X Week 09/14/22 ferrous sulfate 325 mg (65 mg iron) tablet (Feosol) 325 mg PO .3 X a week 09/14/22 multivitamin (Daily Multi-Vitamin tablet) 1 tab PO DAILY 09/14/22 methylphenidate HCl 20 mg tablet,extended release 20 mg PO DAILY 11/18/23 omeprazole 40 mg capsule,delayed release 40 mg PO DAILY 11/18/23 ondansetron HCl 4 mg tablet 4 mg PO PRN nausea 11/18/23
--- NOTE | 2023-11-21 14:22 | CASEMGMT ---
Patient has order for discharge. RN CM in to discuss needs at discharge. Patient denies needs or help at discharge. Patient had no further questions or concerns.
[2023-11-21 15:07] LABS: Complement C3 127 mg/dL (82-167); Complement CH50 > 60 U/mL (>41)
--- NOTE | 2023-11-21 15:59 | CHAPLAIN ---
Type of Pastoral Visit _x__ Initial Visit ___ Follow-up Visit ___ On-call Visit ___ General Patient Visit ___ Spiritual Assessment ___ Family Conference ___ Bereavement ___ Rapid Response ___ Code Blue ___ Other (describe below) Pastoral Care Referral From _x__ Patient ___ Family ___ Nurse ___ Physician ___ Marine Mechanic ___ [employer] Manager ___ Other (describe below) Sacrament/Intervention _x__ Active listening ___ Anointing ___ Mormon _x__ Bereavement ___ Communion ___ Adrianna exploration ___ ___ Life review _x__ Prayer ___ Reconciliation ___ Sacrament of Sick _x__ Supportive presence ___ Wedding ___ Other (describe below) Pastoral Comments patient talks about two recent deaths and the illness of a third relative that has gotten her out of the routine she needed following surgery in October; pt does have a positive out look, support, and a strong adrianna that sees her through the challenges;
== END 2023-11-21 15:25 | disposition home or self-care (01) | DRG 683 ==
LOC: ED 12:33 → PCU 12:45
PROVIDERS: Admitting Provider Internal Medicine; Emergency Provider Emergency Medicine; PCP Family Medicine
DX: N17.9 Acute kidney failure, unspecified (principal); E87.20 Acidosis, unspecified; D64.9 Anemia, unspecified; I10 Essential (primary) hypertension; F32.A Depression, unspecified; E55.9 Vitamin D deficiency, unspecified; K21.9 Gastro-esophageal reflux disease without esophagitis; K58.1 Irritable bowel syndrome with constipation; F90.9 Attention-deficit hyperactivity disorder, unspecified type; Z79.899 Other long term (current) drug therapy; R82.90 Unspecified abnormal findings in urine
CPT/HCPCS: 36415; 74177; 76770; 80048; 80053; 81001; 82570; 83735; 84100; 84300; 84443; 85025; 85027; 86160; 86162; 87086; 94668; 97802; 99283; J7030; Q9967; A4216; J2405